=== PATIENT | female | born 1965 | race Caucasian/White ===

== ENCOUNTER 2019-04-12 12:10 | Emergency (ER) | payer OTHER ==
[2019-04-12] MEDS ORDERED: TETANUS & DIPHTHERIA TOX,ADULT 0.5 ML VIAL ONE (13:31)
[2019-04-12] MEDS ORDERED: LIDOCAINE 1% 20 ML MDV ONE (13:31)
--- NOTE | 2019-04-12 14:03 | EDPHYS ---
Physician Documentation [facility] Name: Mela Escobar Age: 53 yrs Sex: Female : 1965 Arrival Date: 04/12/2019 Time: 12:22 Bed 5 Private MD: ED Physician Sixto Nicholson HPI: 04/12 13:16 This 53 yrs old Female presents to ER via Ambulatory with complaints of ps1 Laceration To Hand. 13:16 R hand dominant female presenting with laceration to left thumb. Using a razor and cut ps1 towards herself. Linear laceration to palmar aspect of thumb at level of DIP. Bleeding controlled. Pain moderate. No tetanus. . Historical: - Allergies: 12:23 No Known Allergies; aj - Immunization history:: Last tetanus immunization: unknown. - Social history:: Smoking status: . - Ebola Screening: : Patient negative for fever greater than or equal to 101.5 degrees Fahrenheit, and additional compatible Ebola Virus Disease symptoms Patient denies exposure to infectious person Patient denies travel to an Ebola-affected area in the 21 days before illness onset No symptoms or risks identified at this time. ROS: 13:16 Constitutional: Negative for fever, chills, and weight loss, Eyes: Negative for injury, ps1 pain, redness, and discharge, Cardiovascular: Negative for chest pain, palpitations, and edema, Respiratory: Negative for shortness of breath, cough, wheezing, and pleuritic chest pain, Abdomen/GI: Negative for abdominal pain, nausea, vomiting, diarrhea, and constipation, Skin: Negative for injury, rash, and discoloration, Neuro: Negative for headache, weakness, numbness, tingling, and seizure, Psych: Negative for depression, anxiety, suicide ideation, homicidal ideation, and hallucinations. 13:16 MS/extremity: Positive for laceration, of the palmar aspect of distal phalanx of left thumb. Exam: 13:16 Constitutional: This is a well developed, well nourished patient who is awake, alert, ps1 and in no acute distress. Head/Face: Normocephalic, atraumatic. Eyes: Pupils equal round and reactive to light, extra-ocular motions intact. Lids and lashes normal. Conjunctiva and sclera are non-icteric and not injected. Cardiovascular: Regular rate and rhythm. No gallops, murmurs, or rubs. Normal PMI, no JVD. No pulse deficits. Respiratory: Lungs have equal breath sounds bilaterally, clear to auscultation and percussion. No rales, rhonchi or wheezes noted. No increased work of breathing, no retractions or nasal flaring. Abdomen/GI: Soft, non-tender, with normal bowel sounds. No distension or tympany. No guarding or rebound. No evidence of tenderness throughout. Skin: Warm, dry with normal turgor. Normal color with no rashes, no lesions, and no evidence of cellulitis. Neuro: Awake and alert, GCS 15, oriented to person, place, time, and situation. Cranial nerves II-XII grossly intact. Sensory grossly intact. 13:16 Musculoskeletal/extremity: Extremities: grossly normal except: noted in the palmar aspect of distal phalanx of left thumb: laceration, Circulation is intact in all extremities. Pulses: are normal with no appreciated deficits, Perfusion: the patient is normally perfused throughout, Sensation intact. Vital Signs: 12:23 BP 137 / 83; Pulse 81; Resp 16; Temp 98.2; Pulse Ox 96% on R/A; Weight 70.31 kg; Height aj 5 ft. 6 in. (167.64 cm); 14:10 BP 132 / 70; Pulse 88; Resp 17 S; Pulse Ox 100% on R/A; sg 12:23 Body Mass Index 25.02 (70.31 kg, 167.64 cm) aj Laceration: 14:00 Wound Repair of 3cm ( 1.2in ) subcutaneous laceration to palmar aspect of distal ps1 phalanx of left thumb. Linear shaped.. Minimal contamination.. Distal neuro/vascular/tendon intact. Anesthesia: Digital block administered with 4 mls of 1% lidocaine. Wound prep: Moderate cleansing with hibiclenz by co, Wound explored minimally moderately, Copious irrigation. Skin closed with 4 4-0 Prolene using simple sutures and sterile technique. Dressed with Neosporin, thumb splint. Patient tolerated well. MDM: 14:00 Data reviewed: vital signs, nurses notes, and as a result, I will discharge patient. ps1 Counseling: I had a detailed discussion with the patient and/or guardian regarding: the historical points, exam findings, and any diagnostic results supporting the discharge/admit diagnosis, to return to the emergency department if symptoms worsen or persist or if there are any questions or concerns that arise at home. 14:03 Patient medically screened. ps1 Administered Medications: No medications were administered Disposition: 04/12/19 14:03 Discharged to Home. Impression: Left thumb laceration. - Condition is Stable. - Discharge Instructions: Laceration Care, Adult, [id number]. - Medication Reconciliation Form, Thank You Letter, Antibiotic Education, Prescription Opioid Use form. - Follow up: Private Physician; When: 7 - 10 days; Reason: Staple/Suture removal. Follow up: Emergency Department; When: 7 - 10 days; Reason: Fever > 102 F, Worsening of condition. - Problem is new. - Symptoms have improved. Signatures: Lux Negrete RN RN sg Myers, Amanda, RN RN aj Singer, Phillip, MD MD ps1 Corrections: (The following items were deleted from the chart) 14:17 14:03 04/12/2019 14:03 Discharged to Home. Impression: Left thumb laceration. Condition sg is Stable. Forms are Medication Reconciliation Form, Thank You Letter, Antibiotic Education, Prescription Opioid Use. Follow up: Private Physician; When: 7 - 10 days; Reason: Staple/Suture removal. Follow up: Emergency Department; When: 7 - 10 days; Reason: Fever > 102 F, Worsening of condition. Problem is new. Symptoms have improved. ps1
--- NOTE | 2019-04-12 14:03 | ER ---
Nurse's Notes [facility] Name: Mela Escobar Age: 53 yrs Sex: Female : 1965 Arrival Date: 04/12/2019 Time: 12:22 Bed 5 Private MD: Diagnosis: Left thumb laceration Presentation: 04/12 12:22 Presenting complaint: Patient states: Laceration to left thumb that occurred 30 min ago aj while opening package with a razor blade. Care prior to arrival: None. 12:22 Method Of Arrival: Ambulatory aj 12:22 Acuity: [place] 4 aj 13:15 Transition of care: patient was not received from another setting of care. Complicating sg Factors: There are no complicating factors for this patient. Onset of symptoms was April 12, 2019. Risk Assessment: Do you want to hurt yourself or someone else? Patient reports no desire to harm self or others. Initial Sepsis Screen: Does the patient meet any 2 criteria? No. Patient's initial sepsis screen is negative. Does the patient have a suspected source of infection? No. Patient's initial sepsis screen is negative. Triage Assessment: 12:23 General: Appears in no apparent distress. comfortable, Behavior is calm, cooperative. aj Pain: Denies pain. Neuro: No deficits noted. Respiratory: No deficits noted. Derm: Skin is intact, is healthy with good turgor, Skin is pink, warm \T\ dry. normal. Injury Description: Laceration sustained to palmar aspect of distal phalanx of left thumb. Historical: - Allergies: 12:23 No Known Allergies; aj - Immunization history:: Last tetanus immunization: unknown. - Social history:: Smoking status: . - Ebola Screening: : Patient negative for fever greater than or equal to 101.5 degrees Fahrenheit, and additional compatible Ebola Virus Disease symptoms Patient denies exposure to infectious person Patient denies travel to an Ebola-affected area in the 21 days before illness onset No symptoms or risks identified at this time. Screenin:20 Abuse screen: Denies threats or abuse. Denies injuries from another. Nutritional sg screening: No deficits noted. Tuberculosis screening: No symptoms or risk factors identified. Never had TB. Fall Risk None identified. Assessment: 13:10 General: Appears in no apparent distress. well groomed, well developed, well nourished, sg Behavior is calm, cooperative, appropriate for age. Pain: Complains of pain in palmar aspect of distal phalanx of left thumb Quality of pain is described as tender, throbbing. Neuro: Level of Consciousness is awake, alert, obeys commands, Oriented to person, place, time, situation, Camera Maker are equal bilaterally Moves all extremities. Speech is normal, Facial symmetry appears normal. Cardiovascular: Capillary refill is brisk in bilateral fingers Patient's skin is warm and dry. Respiratory: Airway is patent Respiratory effort is even, unlabored, Respiratory pattern is regular, symmetrical. GI: No signs and/or symptoms were reported involving the gastrointestinal system. : No signs and/or symptoms were reported regarding the genitourinary system. EENT: No signs and/or symptoms were reported regarding the EENT system. Derm: Skin is pink, warm \T\ dry. Wound noted palmar aspect of distal phalanx of left thumb Wound is clean and dry. Musculoskeletal: Circulation, motion, and sensation intact. Range of motion: intact in all extremities, Swelling absent. Injury Description: Laceration sustained to palmar aspect of distal phalanx of left thumb is contaminated, 0.5 to 2.5 cm long, bleeding moderately, is bleeding a small amount. 14:15 Reassessment: Tetanus administered as ordered Lot [id number], EXP 12/31/20. Vital Signs: 12:23 BP 137 / 83; Pulse 81; Resp 16; Temp 98.2; Pulse Ox 96% on R/A; Weight 70.31 kg; Height aj 5 ft. 6 in. (167.64 cm); 14:10 BP 132 / 70; Pulse 88; Resp 17 S; Pulse Ox 100% on R/A; sg 12:23 Body Mass Index 25.02 (70.31 kg, 167.64 cm) ED Course: 12:22 Patient arrived in ED. aj 12:23 Triage completed. aj 12:23 Arm band placed on right wrist. Patient placed in waiting room. aj 12:56 Sixto Nicholson MD is Attending Physician. ps1 13:15 Patient has correct armband on for positive identification. Bed in low position. Call sg light in reach. gum mixer on. Pulse ox on. NIBP on. 13:44 Lux Negrete RN is Primary Nurse. sg 14:00 Patient did not have IV access during this emergency room visit. Wound care: to sg laceration located on palmar aspect of distal phalanx of left thumb was cleaned with soap and water, Patient tolerated well. 14:10 Wound care: was dressed with Neosporin, 4X4s. sg 14:15 Aluminum finger splint applied to left thumb. sg 14:30 No provider procedures requiring assistance completed. sg Administered Medications: No medications were administered Outcome: 14:03 Discharge ordered by . ps1 14:10 Discharged to home ambulatory, with family. sg 14:10 Condition: good 14:10 Discharge instructions given to patient, Instructed on discharge instructions, follow up and referral plans. safety practices, wound care, Demonstrated understanding of instructions, follow-up care, wound care, splint care. 14:17 Patient left the ED. sg Signatures: Lux Negrete RN RN sg Myers, Amanda RN Sixto Garcia MD MD ps1
== END 2019-04-12 14:17 | disposition home or self-care (01) ==
LOC: ER 12:10
PROC: 0JQK0ZZ Repair Left Hand Subcutaneous Tissue and Fascia, Open Approach (ICD-10-PCS; principal; 2019-04-12)
DX: S61.012A Laceration without foreign body of left thumb without damage to nail, initial encounter (principal); W26.8XXA Contact with other sharp object(s), not elsewhere classified, initial encounter; Y93.89 Activity, other specified; Y92.9 Unspecified place or not applicable
CPT/HCPCS: 90714; 99284

== ENCOUNTER 2019-05-13 06:27 | Day surgery (SDC) | payer OTHER ==
[2019-05-07 09:45] LABS: Absolute Lymphocytes (CBC) 1.1 K/uL (0.7-4.9); Basophils % 0.8 % (0-1.3); Eosinophils % 3.9 % (0-4.4); Hematocrit 42.6 % (36.0-45.0); Lymphocytes % 32.4 % (15.3-44.8); MPV 8.4 fL (7.6-11.3); Monocytes % 12.8 % (3.3-12.3); RBC Red Blood Cell Count 4.66 M/uL (3.86-4.86)
--- NOTE | 2019-05-07 09:46 | RAD REPORT ---
EXAM DESCRIPTION: Tiburcio Jesus (2 Views)05/07/2019 9:37 am CLINICAL HISTORY: Preop for foot surgery. Arrhythmia COMPARISON: None FINDINGS: The lungs appear clear of acute infiltrate. The heart is normal size IMPRESSION: No acute abnormalities displayed
[2019-05-07 09:53] LABS: Urine Appearance CLOUDY; Urine Blood 3+ (NEG); Urine Color RED; Urine Glucose NEGATIVE (NEG); Urine Protein 1+ (NEG); Urine Specific Gravity >=1.030 (1.005-1.030)
[2019-05-07 09:59] LABS: Potassium 4.3 mmol/L (3.5-5.1)
[2019-05-07 10:10] LABS: Protime INR 0.97
[2019-05-07 10:15] LABS: Urine Bilirubin NEGATIVE (NEG); Urine Microscopic Reflex ORDER UMIC
[2019-05-07 10:26] LABS: Urine Bacteria <20 /HPF (<20); Urine Culture Reflex Order REFLEXED; Urine RBC >50 /HPF (NONE SEEN)
--- NOTE | 2019-05-07 16:43 | EKG ---
Test Date: 2019-05-07 Test Time: 09:17:58 Toe Trimmer: SIERRA MEASUREMENT RESULTS: Intervals: Rate: 63 UT: 154 QRSD: 80 QT: 416 QTc: 425 [place]: P: 63 UT: 154 QRS: 62 T: 44 INTERPRETIVE STATEMENTS: Normal sinus rhythm Normal ECG No previous ECG available for comparison Electronically Signed On 05-07-19 16:41:49 CDT by Marin Hoyt
--- NOTE | 2019-05-12 13:32 | PREOPHP ---
Date of Admission: 05/07/2019 History Of Present Illness: This patient presented to my office with a chief complaint of a painful right big toe joint, started a number of years ago. The patient has pain with activities and daily a ctivity. Pain is moderate in severity, throbbing in nature, present for years, worse with activity, improved with rest. Medical History: Unremarkable. Current Medications: Include fluoxetine 10 mg, Kurvelo 0.15 mg-0.03 mg, magnesium 250 mg, vitamin B1 2 with folic acid. Allergies: NKDA. Social History: The patient denies smoking, IV drug use, but admits to minimal alcohol use. Past Surgical History: Includes a history of SVT with radiofrequency ablation. Family History: Includes diabetes in her mother. Arthritis in her father. Physical Examination: Vital Signs: Weight is 165 pounds, height 5 feet 6 inches. General Appearance: The patient is healthy, well developed, well nourished, well oriented x3. VASCULAR: Evaluation reveals dorsalis pedis and posterior tibial pulses to be 4/4 bilaterally. Capi llary refill time is 1 second. Temperature gradient is within normal limits. There is no claudicati on complaint or signs of varicosities or history of DVT. Musculoskeletal: There is a semi-rigid cavus foot type noted bilaterally. Subtalar joint shows incr eased varus bilaterally with forefoot supinatus and adductus bilaterally. There is dorsal eminence o f the first metatarsal head with range of motion 60 degrees on the left and 30 degrees on the right w ith simulated weightbearing. There is hallux limitus noted on the right. Equinus is noted to be 5 d egrees bilaterally per goniometer measurement. The remainder of the digital exam is within normal li mits. Muscle testing, knee assessment, ankle assessment are within normal limits. There are no soft tissue masses noted bilaterally. Skin: Evaluation reveals no rash, ulcer, tumor, or contracture. There is slight redness over the fi rst MPJ dorsally without swelling, temperature, or drainage. Neurologic: Evaluation reveals deep tendon reflexes for the patellar and Achilles to be 5/5 bilatera lly. Vibratory and sharp dull sensation are within normal limits. X-ray evaluation of the right jorge l t reveals no fracture, but degenerative joint changes are seen in the first MPJ. Bone is well minera lized. There is a slight dorsiflexion of the first metatarsal. Lesser metatarsals are adducted 1 to 4. There is decreased joint space with spurring medially and dorsally on first metatarsal head. Diagnosis: Hallux limitus with degenerative joint disease of the first metatarsophalangeal joint, ri ght foot. The recommended treatment for the above patient is a cheilectomy with Cartiva implant if needed. The patient has elected for surgical management due to failure of conservative care, changing shoe gear, anti-inflammatories over prolonged period of time. The patient understands the risks, benefits, and alternatives to the above procedure including, but not limited to the risk of pain, swelling, numbne ss, stiffness, infection, nonhealing of bone, recurrence of problem with continued pain and need for further surgery postoperatively or in the future. The patient is scheduled for surgery at [facility] on May 13, 2019. The patient has been advised to stop her Prozac when she is agapito ing [place] postoperatively. Medical H and P will be completed by Anesthesia. Preoperative labs have been performed and are all w ithin normal limits. KARSTEN/VIKTORAI Voice ID: [id number]
[2019-05-13 06:48] LABS: Specific Gravity 1.015 (1.005-1.030)
[2019-05-13] MEDS ORDERED: CEFAZOLIN/SWI 1gm 1 GM/10 ML SYR ONE (07:00)
[2019-05-13] MEDS ORDERED: Ringers Lactate 1,000 ML IV ONE ×2 (07:00→08:21)
[2019-05-13] MEDS ORDERED: PROPOFOL 200 MG/20 ML VIAL IV ONE ×2 (07:16→07:50)
[2019-05-13] MEDS ORDERED: FENTANYL CITR 100 MCG/2 ML ONE (07:16)
[2019-05-13] MEDS ORDERED: LIDOCAINE 2% MPF 5 ML VIAL ONE (07:17)
[2019-05-13] MEDS ORDERED: MIDAZOLAM HCL 2 MG/2 ML INJ ONE (07:17)
[2019-05-13] MEDS ORDERED: dexAMETHasone 4 MG/ML VIAL ONE ×2 (07:28→08:18)
[2019-05-13] MEDS ORDERED: BUPIVACAINE 0.5% PF 10 ML VIAL ONE (07:29)
[2019-05-13] MEDS ORDERED: Mastisol Adhesive Liq ONE (07:29)
[2019-05-13] MEDS ORDERED: LIDOCAINE 1% 20 ML MDV ONE (07:29)
[2019-05-13] MEDS ORDERED: ONDANSETRON 4 MG/2 ML VIAL ONE (07:56)
[2019-05-13] MEDS ORDERED: EPHEDRINE SULF 50 MG/ML VIAL ONE (08:18)
[2019-05-13] MEDS ORDERED: KETOROLAC 30 MG/ML INJ ONE (08:43)
--- NOTE | 2019-05-13 10:20 | RAD REPORT ---
EXAM DESCRIPTION: RAD - Foot Right 2 View - 05/13/2019 9:52 am CLINICAL HISTORY: AP Lateral SP cheilectomy w/ implant COMPARISON: No comparisons FINDINGS: No fracture or unexpected postsurgical finding. Evidence of recent cheilectomy noted. Smal l plantar calcaneal spur.
--- NOTE | 2019-05-13 19:54 | OP ---
Date of Procedure: 05/13/2019 Surgeon: Ori Weaver DPM Preoperative Diagnosis: Hallux limitus, right foot. Postoperative Diagnosis: Hallux limitus, right foot. Procedure: Cheilectomy with Cartiva implant 10 mm, first metatarsophalangeal joint, right foot. Anesthesia: Via local infiltration. Procedure In Detail: The patient was brought into the operating room, placed on the operating table in supine position. Once adequate IV sedation was obtained, the patient was injected with a total of 9 cc of 0.5% Marcaine plain. The patient was prepped and draped in usual sterile manner. The right extremity was elevated first to 60 degrees for a period of 3 minutes to exsanguinate the blood suppl y. Pneumatic ankle tourniquet was elevated to 250 mmHg. Attention was then directed to the first MP J where a 4 cm dorsal linear incision was made overlying the first MPJ. The incision was deepened vi a sharp and blunt dissection down to the capsule. The capsule tissue was incised down to bone over t he distal aspect of the first metatarsal and onto the proximal phalanx. All neurologic structures we re avoided. All bleeders were clamped and bovied. The capsular tissue was dissected free from the d orsal, medial and lateral aspects of the first MPJ bringing into view the joint. There was significa nt spurring on the dorsal and lateral and medial aspects of the first MPJ with some loose cartilagino us bodies. These were removed. The cartilage was inspected and seemed to be in poor condition. The dorsal 50% was down to bone. The sesamoid apparatus and medial and lateral collateral ligaments wer e freed to facilitate plantar flexion of the hallux and full view of the first metatarsal head. Util izing Cartiva implant system, a 10 mm Sizer was put onto the first metatarsal head and seemed to have more than 2 mm of periphery of bone around the Sizer. The K-wire was then drilled into the first me tatarsal parallel to the shaft and the Sizer was removed. A 10 mm reamer was then put onto the K-wir e and drilled into the first metatarsal head approximately 2 mm shy of its stop rim. The K-wire was removed. The area was flushed with copious amounts of sterile saline to clean out the hole. The 10 mm Cartiva implant was then placed into the tube and pushed into the waiting hole made by the reamer. Seeding was excellent with 3 mm of implant showing as indicated. The first MPJ was put through ran ge of motion and seemed to be 80 degrees on the table. The dorsal and medial aspects of first metata rsal head, to remove any irregularities and additional enlargement. The area was flushed w ith copious amounts of sterile saline. Capsular tissue was then cleaned and reapproximated utilizing 2-0 Vicryl suture. Skin was reapproximated utilizing 4-0 Prolene horizontal mattress suture. Again , range of motion was seemed to be 80 degrees. The foot was dressed with Adaptic, dry sterile gauze, dry sterile Marquez, Kerlix, cold therapy pad, and Raj bandaging. Pneumatic ankle tourniquet was rele ased and capillary return was seen to be instantaneous to all digits. The patient was discharged to the recovery room in satisfactory condition. KARSTEN/VIKTORIA Voice ID: [id number] Report ID: [id number]
--- NOTE | 2019-05-13 23:49 | DS ---
Date of Discharge: 05/13/2019 Date Of Surgery: 05/13/2019. Surgeon: Ori Weaver DPM Preoperative Diagnosis: Hallux limitus, first metatarsophalangeal joint, right foot. Postoperative Diagnosis: Hallux limitus, first metatarsophalangeal joint, right foot. Procedure: Cheilectomy with Cartiva implant 10 mm, first metatarsophalangeal joint right foot. Hospital Course: The patient tolerated the procedure and anesthesia well and was sent to recovery [facility] in satisfactory condition. The patient will be discharged to home with instructions to ambulate i n a postop shoe in the written form as well as cold therapy unit. The patient has emergency phone nu mber and all instructions in written form as well as postop medications for pain. The patient will b e followed in my office for postoperative care 1 week on the at 9 a.m. The patient will be disc harged per Anesthesia guidelines. KARSTEN/VIKTORIA Voice ID: [id number] Report ID: [id number]
== END 2019-05-13 10:35 | disposition home or self-care (01) ==
LOC: OR 06:27
PROVIDERS: ATTEND Podiatrist
PROC: 0SRM0JZ Replacement of Right Metatarsal-Phalangeal Joint with Synthetic Substitute, Open Approach (ICD-10-PCS; principal; 2019-05-13 07:30)
DX: M20.5X1 Other deformities of toe(s) (acquired), right foot (principal); M19.071 Primary osteoarthritis, right ankle and foot; F41.9 Anxiety disorder, unspecified; Z79.899 Other long term (current) drug therapy
CPT/HCPCS: 36415; 71046; 80048; 81003; 81015; 81025; 85025; 85610; 85730; 87086; 87088; 93005; J0690; J2250; J2405; J2704; J3010